=== PATIENT | female | born 1930 | race Caucasian/White ===

== ENCOUNTER → 2017-10-31 | Outpatient (CLI) | payer OTHER ==
[~2017-10-31] MED LIST: ASPI81CH; ATOR10; CALCA500CH; CHOL10002; TRIHYD253B
[2017-10-31 10:29] LABS: Anion Gap 11 mmol/L (6-16); Blood Urea Nitrogen 31 mg/dL (8-24); Bun/Creatinine Ratio 24.2 (12.0-20.0); CHOL/HDL RATIO 1.6; CO2, Blood 25 mmol/L (21-32); Calcium, Blood 8.9 mg/dL (8.5-10.1); Chloride, Blood 96 mmol/L (98-108); Cholesterol 144 mg/dL (50-200); Creatinine, Blood 1.28 mg/dL (0.40-1.00); Glomerular Filtration Rate 42 (60-); Glucose, Blood 129 mg/dL (70-99); HDL Cholesterol 91 mg/dL (>39); LDL/HDL RATIO 0.4; Low Density Lipoprotein Chol 40 mg/dL (0-110); Potassium, Blood 3.8 mmol/L (3.5-5.5); Sodium, Blood 132 mmol/L (136-145); Triglycerides 65 mg/dL (30-160); Very Low Density Lipoprot Chol 13 mg/dL (6-32)
== END | disposition home or self-care (01) ==
LOC: LAB 09:45
PROVIDERS: Internal Medicine
DX: I12.9 Hypertensive chronic kidney disease with stage 1 through stage 4 chronic kidney disease, or unspecified chronic kidney disease (principal); N18.9 Chronic kidney disease, unspecified; E78.5 Hyperlipidemia, unspecified
CPT/HCPCS: 80048; 80061

== ENCOUNTER → 2017-12-06 | Outpatient (CLI) | payer OTHER ==
[2017-12-06 11:09] LABS: Glucose, Blood 97 mg/dL (70-99)
== END ==
LOC: LAB 10:54
PROVIDERS: Internal Medicine
DX: R73.9 Hyperglycemia, unspecified (principal)
CPT/HCPCS: 82947

== ENCOUNTER 2018-12-01 06:49 | Day surgery (SDC) | payer OTHER ==
[~2018-12-01] VITALS: Ht 165.1 cm; Wt 88.5 kg
[~2018-12-01 06:49] MED LIST changes: +ACET325 PO; +ASCO500 PO; -ASPI81CH; +ASPI81CH PO; -ATOR10; +ATOR10 PO; +CALCIUM CHEWS PO; +Dyazide 37.5-21 EACH PO; +Hair, Skin & N1 EACH PO; -TRIHYD253B
--- NOTE | 2018-12-01 07:55 | NUR ---
Ambulatory in Day Surgery History, Chart, Medications and Allergies reviewed before start of procedure.Lungs clear T/O to Auscultation. Patient confirms NPO status and agrees with scheduled surgery. Patient reports completing Chlorhexadine shower X2 prior to admission to hospital.Surgical site prepped with 2% Chlorhexidine cloth wipe. Patient States Post-Procedure ride home has been arranged.
--- NOTE | 2018-12-01 11:47 | NUR ---
Patient up to Ambulate independently. Gait steady. Discharge instructions reviewed with patient. Patient verbalizes understanding. Copy given to patient to take home. Dressing to procedure site clean, dry, intact with no visible drainage, swelling, erythema or bruising noted. Patient States Post-Procedure ride home has been arranged. Discharged via wheelchair to private car for ride home.
== END 2018-12-01 11:39 | disposition home or self-care (01) ==
LOC: ORSCMMR 06:49 → ORD 09:00 → ORSCMMR 11:39
PROVIDERS: Surgery
PROC: 0FT44ZZ Resection of Gallbladder, Percutaneous Endoscopic Approach (ICD-10-PCS; principal; 2018-12-01 09:00)
PROC: BF031ZZ Plain Radiography of Gallbladder and Bile Ducts using Low Osmolar Contrast (ICD-10-PCS; principal; 2018-12-01 09:00)
DX: K80.10 Calculus of gallbladder with chronic cholecystitis without obstruction (principal); I12.9 Hypertensive chronic kidney disease with stage 1 through stage 4 chronic kidney disease, or unspecified chronic kidney disease; N18.3 Chronic kidney disease, stage 3 (moderate); Z79.899 Other long term (current) drug therapy; Z79.82 Long term (current) use of aspirin
CPT/HCPCS: 74300; 88304; C1729; J0690; J1100; J1885; J2370; J2405; J3010; J7120